=== PATIENT | female | born 1930 | race Caucasian/White ===

== ENCOUNTER 2016-11-21 14:09 | Outpatient (CLI) | payer MEDICARE, OTHER | END 2016-11-21 14:10 | disposition home or self-care (01) | DX: I48.91 Unspecified atrial fibrillation (principal); Z79.01 Long term (current) use of anticoagulants ==

== ENCOUNTER 2016-12-05 14:53 | Outpatient (CLI) | payer MEDICARE, OTHER | END 2016-12-05 14:54 | disposition home or self-care (01) | DX: I48.91 Unspecified atrial fibrillation (principal); Z79.01 Long term (current) use of anticoagulants ==

== ENCOUNTER 2017-01-02 14:17 | Outpatient (CLI) | payer MEDICARE, OTHER | END 2017-01-02 14:18 | disposition home or self-care (01) | DX: I48.91 Unspecified atrial fibrillation (principal); Z79.01 Long term (current) use of anticoagulants ==

== ENCOUNTER 2017-01-22 09:43 | Outpatient (CLI) | payer MEDICARE, OTHER | END 2017-01-22 09:44 | disposition home or self-care (01) | DX: E78.2 Mixed hyperlipidemia (principal); E03.9 Hypothyroidism, unspecified; Z79.899 Other long term (current) drug therapy ==

== ENCOUNTER 2017-01-30 09:32 | Outpatient (CLI) | payer MEDICARE, OTHER | END 2017-01-30 09:33 | disposition home or self-care (01) | DX: I48.91 Unspecified atrial fibrillation (principal); Z79.01 Long term (current) use of anticoagulants ==

== ENCOUNTER 2017-02-27 14:24 | Outpatient (CLI) | payer MEDICARE, OTHER | END 2017-02-27 14:25 | disposition home or self-care (01) | DX: I48.91 Unspecified atrial fibrillation (principal) ==

== ENCOUNTER 2017-04-03 14:17 | Outpatient (CLI) | payer MEDICARE, OTHER | END 2017-04-03 14:18 | LOC: LAB.F 14:17 | PROVIDERS: ATTEND Internal Medicine | DX: I48.91 Unspecified atrial fibrillation (principal) | CPT/HCPCS: 85610 ==

== ENCOUNTER 2017-05-01 14:48 | Outpatient (CLI) | payer MEDICARE, OTHER | END 2017-05-01 14:49 | disposition home or self-care (01) | LOC: LAB.F 14:48 | PROVIDERS: ATTEND Internal Medicine | DX: I48.91 Unspecified atrial fibrillation (principal) | CPT/HCPCS: 85610 ==

== ENCOUNTER 2017-05-31 11:13 | Outpatient (CLI) | payer MEDICARE, OTHER | END 2017-05-31 11:14 | disposition home or self-care (01) | LOC: LAB.F 11:13 | PROVIDERS: ATTEND Internal Medicine | DX: I48.91 Unspecified atrial fibrillation (principal) | CPT/HCPCS: 85610 ==

== ENCOUNTER 2017-06-14 15:46 | Outpatient (CLI) | payer MEDICARE, OTHER | END 2017-06-14 15:47 | disposition home or self-care (01) | LOC: LAB.F 15:46 | PROVIDERS: ATTEND Internal Medicine | DX: I48.91 Unspecified atrial fibrillation (principal); Z79.01 Long term (current) use of anticoagulants | CPT/HCPCS: 85610 ==

== ENCOUNTER 2017-06-28 14:45 | Outpatient (CLI) | payer MEDICARE, OTHER | END 2017-06-28 14:46 | disposition home or self-care (01) | LOC: LAB.F 14:45 | PROVIDERS: ATTEND Internal Medicine | DX: I48.91 Unspecified atrial fibrillation (principal) | CPT/HCPCS: 85610 ==

== ENCOUNTER 2017-07-31 15:55 | Outpatient (CLI) | payer MEDICARE, OTHER | END 2017-07-31 15:56 | disposition home or self-care (01) | LOC: LAB.F 15:55 | PROVIDERS: ATTEND Internal Medicine | DX: I48.91 Unspecified atrial fibrillation (principal); Z79.01 Long term (current) use of anticoagulants | CPT/HCPCS: 85610 ==

== ENCOUNTER 2017-08-28 14:54 | Outpatient (CLI) | payer MEDICARE, OTHER | END 2017-08-28 14:55 | disposition home or self-care (01) | LOC: LAB.F 14:54 | PROVIDERS: ATTEND Internal Medicine | DX: I48.91 Unspecified atrial fibrillation (principal); Z79.01 Long term (current) use of anticoagulants | CPT/HCPCS: 85610 ==

== ENCOUNTER 2017-10-16 15:07 | Outpatient (CLI) | payer MEDICARE, OTHER | END 2017-10-16 15:08 | disposition home or self-care (01) | LOC: LAB.F 15:07 | PROVIDERS: ATTEND Internal Medicine | DX: I48.91 Unspecified atrial fibrillation (principal); Z79.01 Long term (current) use of anticoagulants | CPT/HCPCS: 85610 ==

== ENCOUNTER 2017-11-13 14:26 | Outpatient (CLI) | payer MEDICARE, OTHER | END 2017-11-13 14:27 | disposition home or self-care (01) | LOC: LAB.F 14:26 | PROVIDERS: ATTEND Internal Medicine | DX: I48.91 Unspecified atrial fibrillation (principal); Z79.01 Long term (current) use of anticoagulants | CPT/HCPCS: 85610 ==

== ENCOUNTER 2017-11-28 14:53 | Outpatient (CLI) | payer MEDICARE, OTHER | END 2017-11-28 14:54 | disposition home or self-care (01) | LOC: LAB.F 14:53 | PROVIDERS: ATTEND Internal Medicine | DX: I48.91 Unspecified atrial fibrillation (principal); Z79.01 Long term (current) use of anticoagulants | CPT/HCPCS: 85610 ==

== ENCOUNTER 2017-12-15 06:12 | Emergency (ER) | payer MEDICARE, OTHER ==
[2017-12-15 06:33] VITALS: BP 190/82
--- NOTE | 2017-12-15 06:51 | ED Physician Documentation ---
History of Present Illness - Stated complaint Stated Complaint: NECK/RT SHOULDER PX - Chief complaint Chief Complaint: General - History obtained from History obtained from: Patient - History of Present Illness Timing: Yesterday - Additonal information Additional information: Patient is an 87 year old female with a history of afib and aortic regurgitation presenting to the emergency department for throbbing in her neck. Patient states that when she was getting ready for be last night she noticed pulsing in her neck and her veins looked larger. Patient states that she remembered a sign about possible strokes and was worried that she might be having a stroke even though she did not have any neurological symptoms. Patient complained of mild shortness of breath with exertion but states that has been going on for years. Patient states that she used to be on a diuretic but her doctor has taken her off it. Review of Systems Constitutional: denies: Fever, Chills Eyes: denies: Loss of vision, Photophobia Ears: reports: Reviewed and negative Nose: reports: Reviewed and negative Throat: reports: Reviewed and negative Cardiac: denies: Chest pain / pressure, Palpitations Respiratory: denies: Dyspnea, Cough, Wheezing GI: denies: Nausea, Vomiting Skin: denies: Rash, Lesions Musculoskeletal: denies: Neck pain, Back pain, Extremity pain Neurologic: denies: Generalized weakness, Focal weakness, Numbness, Difficulty speaking, Near syncope, Syncope, Headache, Head injury Immunocompromised: denies: Immunocompromised PD PAST MEDICAL HISTORY - Past Medical History Past Medical History: Yes Cardiovascular: Congestive heart failure Neuro: None Endocrine/Autoimmune: None HAND MIXER: None HEENT: None Derm: None - Allergies Allergies/Adverse Reactions: Allergies Allergy/AdvReac Type Severity Reaction Status Date / Time azithromycin [From Zithromax] AdvReac diarrhea Verified 12/15/17 06:39 Sulfa (Sulfonamide AdvReac diarrhea Verified 12/15/17 06:38 Antibiotics) - Social History Does the pt smoke?: No Smoking Status: Never smoker Does the pt drink ETOH?: No Does the pt have substance abuse?: No - Immunizations Immunizations are current?: Yes - POLST Patient has POLST: No PD ED PE NORMAL - Vitals Vital signs reviewed: Yes - General General: Alert and oriented X 3 - HEENT HEENT: Atraumatic, PERRL, Moist mucous membranes - Neck Neck: Supple, no meningeal sign, No bony TTP - Respiratory Respiratory: No respiratory distress - Abdomen Abdomen: Soft, Non tender, Non distended - Derm Derm: Normal color, Warm and dry, No rash - Extremities Extremities: No deformity, Normal ROM s pain - Neuro Neuro: Alert and oriented X 3, No motor deficit, No sensory deficit, Normal speech Eye Opening: Spontaneous Motor: Obeys Commands Verbal: Oriented GCS Score: 15 - Psych Psych: Normal mood PD ED PE EXPANDED - General General: Alert, Anxious - Neck Neck: JVD present (worse on right) - Cardiac Cardiac: Irregularly irregular, Murmur Present - Extremities Extremities: Right shoulder (minimal tenderness to palpation of right shoulder) Results - Vitals Vitals: Vital Signs - 24 hr 12/15/17 06:27 Temperature 36.4 C L Heart Rate 86 Respiratory 17 Rate Blood Pressure 190/82 H O2 Saturation 98 Oxygen O2 Source Room air PD MEDICAL DECISION MAKING - ED course Complexity details: reviewed old records, reviewed results, re-evaluated patient , considered differential, d/w patient ED course: Patient was seen and examined at bedside. Patient's neck vascularity was viewed under ultrasound. What patient had witnessed was her IJ resting on top of her carotid. Due to the jvd it was visible. Patient's previous echocardiogram results from 2016 were reviewed. Patient had regurgitation in multiple valves with sustained ejection fracture. Patient's symptoms were likely caused by a worsening of her disease. Patient stated that she felt comfortable following up with her doctor on sunday. Patient stated that her main concern was that she was having a stroke. Patient was stable for discharge with outpatient follow up. Departure - Departure Disposition: Home, Self Care Clinical Impression: JVD (jugular venous distension) Condition: Good Instructions: Regurgitation Aortic About Follow-Up: Salvador Harrington MD [Primary Care Provider] - Tomorrow Comments: Your symptoms today are secondary to the valves in your heart being leaky. It is important that you follow up with your doctor on sunday as you will need a repeat echocardiogram and will likely need to start taking a water pill. there were no signs of a stroke today. You should return to the emergency department for chest pain, new shortness of breath, change in vision, new worsening or uncontrollable symptoms.
== END 2017-12-15 07:20 | disposition home or self-care (01) ==
LOC: ED 06:12
DX: I87.8 Other specified disorders of veins (principal); I48.91 Unspecified atrial fibrillation; I50.9 Heart failure, unspecified; I35.1 Nonrheumatic aortic (valve) insufficiency
CPT/HCPCS: 99282; 99284

== ENCOUNTER 2017-12-20 11:19 | Outpatient (CLI) | payer MEDICARE, OTHER | END 2017-12-20 11:20 | disposition home or self-care (01) | LOC: DI 11:19 | PROVIDERS: ATTEND Internal Medicine | DX: I08.1 Rheumatic disorders of both mitral and tricuspid valves (principal); I87.8 Other specified disorders of veins | CPT/HCPCS: 93306 ==

== ENCOUNTER 2017-12-27 08:00 | Outpatient (CLI) | payer MEDICARE, OTHER | END 2017-12-27 08:01 | disposition home or self-care (01) | LOC: LAB.F 08:00 | PROVIDERS: ATTEND Internal Medicine | DX: I48.91 Unspecified atrial fibrillation (principal); Z79.01 Long term (current) use of anticoagulants | CPT/HCPCS: 85610 ==

== ENCOUNTER 2018-01-08 13:45 | Outpatient (CLI) | payer MEDICARE, OTHER ==
[2018-01-08 18:09] LABS: CALCIUM 8.9 mg/dL (8.5-10.3); CREATININE 0.9 mg/dL (0.4-1.0)
== END 2018-01-08 13:46 | disposition home or self-care (01) ==
LOC: LAB.F 13:45
PROVIDERS: ATTEND Internal Medicine Cardiovascular Disease
DX: I48.91 Unspecified atrial fibrillation (principal); Z79.01 Long term (current) use of anticoagulants; I35.1 Nonrheumatic aortic (valve) insufficiency; I34.0 Nonrheumatic mitral (valve) insufficiency
CPT/HCPCS: 36415; 80048

== ENCOUNTER 2018-01-24 11:25 | Outpatient (CLI) | payer MEDICARE, OTHER | END 2018-01-24 11:26 | disposition home or self-care (01) | LOC: LAB.F 11:25 | PROVIDERS: ATTEND Internal Medicine | DX: I48.91 Unspecified atrial fibrillation (principal); Z79.01 Long term (current) use of anticoagulants | CPT/HCPCS: 85610 ==

== ENCOUNTER 2018-02-13 10:19 | Outpatient (CLI) | payer MEDICARE, OTHER ==
[2018-02-13 17:55] LABS: BASOPHILS # (AUTO) 0.1 10^3/uL (0.0-0.1); BASOPHILS % (AUTO) 1.2 %; EOSINOPHILS # (AUTO) 0.1 10^3/uL (0.0-0.7); EOSINOPHILS % (AUTO) 2.1 %; HGB - HEMOGLOBIN 13.5 g/dL (12.0-16.0); LYMPHOCYTES # (AUTO) 1.2 10^3/uL (1.5-3.5); LYMPHOCYTES % (AUTO) 23.2 %; MEAN CORPUSCULAR HEMOGLOBIN 31.1 pg (27.0-31.0); MEAN CORPUSCULAR VOLUME 94.2 fL (81.0-99.0); MEAN PLATELET VOLUME 8.2 fL (7.9-10.8); MONOCYTES # (AUTO) 0.5 10^3/uL (0.0-1.0); MONOCYTES % (AUTO) 9.5 %; NEUTROPHILS # (AUTO) 3.3 10^3/uL (1.5-6.6); PLT - PLATELET COUNT 158 10^3/uL (130-450); RED BLOOD COUNT 4.34 10^6/uL (4.20-5.40); RED CELL DISTRIBUTION WIDTH 14.8 % (12.0-15.0); WHITE BLOOD COUNT 5.2 x10^3/uL (4.8-10.8)
[2018-02-13 18:07] LABS: ALBUMIN 4.3 g/dL (3.2-5.5); ALBUMIN/GLOBULIN RATIO 1.6 (1.0-2.2); ALKALINE PHOSPHATASE 56 IU/L (42-121); ALT ALANINE AMINOTRANSFERASE 24 IU/L (10-60); AST ASPARTATE AMINOTRANSFERASE 27 IU/L (10-42); BUN - BLOOD UREA NITROGEN 32 mg/dL (6-20); CALCIUM 9.4 mg/dL (8.5-10.3); CARBON DIOXIDE - CO2 31 mmol/L (21-32); CHLORIDE 98 mmol/L (101-111); CHOL/HDL RATIO 2.6 (<4.4); CHOLESTEROL 129 mg/dL; GFR - MDRD 52 (>89); GLUCOSE 91 mg/dL (70-100); HDL CHOLESTEROL 49 mg/dL; LDL CHOLESTEROL,CALCULATED 72 mg/dL; LDL/HDL RATIO 1.5 (<4.4); SODIUM 137 mmol/L (135-145); VLDL CHOLESTEROL 8 mg/dL
== END 2018-02-13 10:20 | disposition home or self-care (01) ==
LOC: LAB.F 10:19
PROVIDERS: ATTEND Internal Medicine
DX: M85.80 Other specified disorders of bone density and structure, unspecified site (principal); E03.9 Hypothyroidism, unspecified; I48.91 Unspecified atrial fibrillation; I10 Essential (primary) hypertension; E78.5 Hyperlipidemia, unspecified
CPT/HCPCS: 36415; 80053; 80061; 83721; 84443; 85025

== ENCOUNTER 2018-02-27 10:44 | Outpatient (CLI) | payer MEDICARE, OTHER | END 2018-02-27 10:45 | disposition home or self-care (01) | LOC: LAB.F 10:44 | PROVIDERS: ATTEND Internal Medicine | DX: I48.91 Unspecified atrial fibrillation (principal); Z79.01 Long term (current) use of anticoagulants | CPT/HCPCS: 85610 ==

== ENCOUNTER 2018-03-25 14:50 | Outpatient (CLI) | payer MEDICARE, OTHER ==
[2018-03-25 18:26] LABS: CALCIUM 9.4 mg/dL (8.5-10.3); CREATININE 1.1 mg/dL (0.4-1.0)
== END 2018-03-25 14:51 | disposition home or self-care (01) ==
LOC: LAB.F 14:50
PROVIDERS: ATTEND Internal Medicine Cardiovascular Disease
DX: R94.4 Abnormal results of kidney function studies (principal)
CPT/HCPCS: 36415; 80048

== ENCOUNTER 2018-03-28 15:02 | Outpatient (CLI) | payer MEDICARE, OTHER | END 2018-03-28 15:03 | disposition home or self-care (01) | LOC: LAB.F 15:02 | PROVIDERS: ATTEND Internal Medicine | DX: I48.91 Unspecified atrial fibrillation (principal); Z79.01 Long term (current) use of anticoagulants | CPT/HCPCS: 85610 ==

== ENCOUNTER 2018-04-25 15:23 | Outpatient (CLI) | payer MEDICARE, OTHER | END 2018-04-25 15:24 | disposition home or self-care (01) | LOC: LAB.F 15:23 | PROVIDERS: ATTEND Internal Medicine | DX: I48.91 Unspecified atrial fibrillation (principal); Z79.01 Long term (current) use of anticoagulants | CPT/HCPCS: 85610 ==

== ENCOUNTER 2018-04-29 11:50 | Outpatient (CLI) | payer MEDICARE, OTHER ==
[2018-04-29 14:05] LABS: BASOPHILS % (AUTO) 0.9 %; EOSINOPHILS % (AUTO) 0.8 %; HGB - HEMOGLOBIN 12.8 g/dL (12.0-16.0); LYMPHOCYTES # (AUTO) 0.9 10^3/uL (1.5-3.5); LYMPHOCYTES % (AUTO) 22.8 %; MEAN CORPUSCULAR HEMOGLOBIN 32.6 pg (27.0-31.0); MEAN CORPUSCULAR HGB CONC 34.2 g/dL (32.0-36.0); MEAN CORPUSCULAR VOLUME 95.3 fL (81.0-99.0); MEAN PLATELET VOLUME 8.6 fL (7.9-10.8); MONOCYTES # (AUTO) 0.5 10^3/uL (0.0-1.0); MONOCYTES % (AUTO) 12.8 %; NEUTROPHILS # (AUTO) 2.5 10^3/uL (1.5-6.6); NEUTROPHILS % (AUTO) 62.7 %; PLT - PLATELET COUNT 96 10^3/uL (130-450); RED BLOOD COUNT 3.92 10^6/uL (4.20-5.40); RED CELL DISTRIBUTION WIDTH 14.9 % (12.0-15.0); WHITE BLOOD COUNT 3.9 x10^3/uL (4.8-10.8)
[2018-04-29 14:09] LABS: ALBUMIN 3.5 g/dL (3.2-5.5); ALBUMIN/GLOBULIN RATIO 1.2 (1.0-2.2); BILIRUBIN,TOTAL 0.8 mg/dL (0.2-1.0); CALCIUM 8.5 mg/dL (8.5-10.3); CREATININE 0.9 mg/dL (0.4-1.0); TOTAL PROTEIN 6.4 g/dL (6.7-8.2)
[2018-04-29 14:26] LABS: RBC MORPHOLOGY (MULTIPLE) 2+ ANISOCYTOSIS (NORMAL)
== END 2018-04-29 11:51 | disposition home or self-care (01) ==
LOC: LAB.R 11:50
PROVIDERS: ATTEND Internal Medicine
DX: R19.7 Diarrhea, unspecified (principal)
CPT/HCPCS: 80053; 85025

== ENCOUNTER 2018-05-09 14:00 | Outpatient (CLI) | payer MEDICARE, OTHER | END 2018-05-09 14:01 | disposition home or self-care (01) | LOC: LAB.F 14:00 | PROVIDERS: ATTEND Internal Medicine | DX: I48.91 Unspecified atrial fibrillation (principal); Z79.01 Long term (current) use of anticoagulants | CPT/HCPCS: 85610 ==

== ENCOUNTER 2018-05-23 15:30 | Outpatient (CLI) | payer MEDICARE, OTHER | END 2018-05-23 15:31 | disposition home or self-care (01) | LOC: LAB.F 15:30 | PROVIDERS: ATTEND Internal Medicine | DX: I48.91 Unspecified atrial fibrillation (principal); Z79.01 Long term (current) use of anticoagulants | CPT/HCPCS: 85610 ==

== ENCOUNTER 2018-06-06 15:15 | Outpatient (CLI) | payer MEDICARE, OTHER | END 2018-06-06 15:16 | disposition home or self-care (01) | LOC: LAB.F 15:15 | PROVIDERS: ATTEND Internal Medicine | DX: I48.91 Unspecified atrial fibrillation (principal); Z79.01 Long term (current) use of anticoagulants | CPT/HCPCS: 85610 ==

== ENCOUNTER 2018-06-20 10:04 | Outpatient (CLI) | payer MEDICARE, OTHER | END 2018-06-20 10:05 | disposition home or self-care (01) | LOC: LAB.F 10:04 | PROVIDERS: ATTEND Internal Medicine | DX: I48.91 Unspecified atrial fibrillation (principal); Z79.01 Long term (current) use of anticoagulants | CPT/HCPCS: 85610 ==

== ENCOUNTER 2018-07-09 10:08 | Outpatient (CLI) | payer MEDICARE, OTHER ==
[2018-07-09 19:14] LABS: CALCIUM 9.4 mg/dL (8.5-10.3)
== END 2018-07-09 10:09 | disposition home or self-care (01) ==
LOC: LAB.F 10:08
PROVIDERS: ATTEND Internal Medicine
DX: I10 Essential (primary) hypertension (principal)
CPT/HCPCS: 36415; 80048

== ENCOUNTER 2018-07-18 11:04 | Outpatient (CLI) | payer MEDICARE, OTHER | END 2018-07-18 11:05 | disposition home or self-care (01) | LOC: LAB.F 11:04 | PROVIDERS: ATTEND Internal Medicine | DX: I48.91 Unspecified atrial fibrillation (principal); Z79.01 Long term (current) use of anticoagulants | CPT/HCPCS: 85610 ==

== ENCOUNTER 2018-08-01 13:24 | Outpatient (CLI) | payer MEDICARE, OTHER | END 2018-08-01 13:25 | disposition home or self-care (01) | LOC: LAB.F 13:24 | PROVIDERS: ATTEND Internal Medicine | DX: I48.91 Unspecified atrial fibrillation (principal); Z79.01 Long term (current) use of anticoagulants | CPT/HCPCS: 85610 ==

== ENCOUNTER 2018-08-28 14:59 | Outpatient (CLI) | payer MEDICARE, OTHER | END 2018-08-28 15:00 | disposition home or self-care (01) | LOC: LAB.F 14:59 | PROVIDERS: ATTEND Internal Medicine | DX: I48.91 Unspecified atrial fibrillation (principal); Z79.01 Long term (current) use of anticoagulants | CPT/HCPCS: 85610 ==

== ENCOUNTER 2018-09-05 13:43 | Outpatient (CLI) | payer MEDICARE, OTHER | END 2018-09-05 13:44 | disposition home or self-care (01) | LOC: LAB.F 13:43 | PROVIDERS: ATTEND Internal Medicine | DX: I48.91 Unspecified atrial fibrillation (principal); Z79.01 Long term (current) use of anticoagulants | CPT/HCPCS: 85610 ==

== ENCOUNTER 2018-10-01 10:35 | Outpatient (CLI) | payer MEDICARE, OTHER | END 2018-10-01 10:36 | disposition home or self-care (01) | LOC: LAB.F 10:35 | PROVIDERS: ATTEND Internal Medicine | DX: I48.91 Unspecified atrial fibrillation (principal); Z79.01 Long term (current) use of anticoagulants | CPT/HCPCS: 85610 ==

== ENCOUNTER 2018-10-29 14:32 | Outpatient (CLI) | payer MEDICARE, OTHER | END 2018-10-29 14:33 | disposition home or self-care (01) | LOC: LAB.F 14:32 | PROVIDERS: ATTEND Internal Medicine | DX: I48.91 Unspecified atrial fibrillation (principal); Z79.01 Long term (current) use of anticoagulants | CPT/HCPCS: 85610 ==

== ENCOUNTER 2018-11-13 14:44 | Outpatient (CLI) | payer MEDICARE, OTHER | END 2018-11-13 14:45 | disposition home or self-care (01) | LOC: LAB.F 14:44 | PROVIDERS: ATTEND Internal Medicine | DX: I48.91 Unspecified atrial fibrillation (principal); Z79.01 Long term (current) use of anticoagulants | CPT/HCPCS: 85610 ==

== ENCOUNTER 2018-11-28 15:11 | Outpatient (CLI) | payer MEDICARE, OTHER | END 2018-11-28 15:12 | disposition home or self-care (01) | LOC: LAB.F 15:11 | PROVIDERS: ATTEND Internal Medicine | DX: I48.91 Unspecified atrial fibrillation (principal); Z79.01 Long term (current) use of anticoagulants | CPT/HCPCS: 85610 ==

== ENCOUNTER 2018-12-25 14:22 | Outpatient (CLI) | payer MEDICARE, OTHER | END 2018-12-25 14:23 | disposition home or self-care (01) | LOC: LAB.F 14:22 | PROVIDERS: ATTEND Internal Medicine | DX: I48.91 Unspecified atrial fibrillation (principal); Z79.01 Long term (current) use of anticoagulants | CPT/HCPCS: 85610 ==

== ENCOUNTER 2019-02-04 14:15 | Outpatient (CLI) | payer MEDICARE, OTHER | END 2019-02-04 14:16 | disposition home or self-care (01) | LOC: LAB.F 14:15 | PROVIDERS: ATTEND Internal Medicine | DX: I48.91 Unspecified atrial fibrillation (principal); Z79.01 Long term (current) use of anticoagulants | CPT/HCPCS: 85610 ==

== ENCOUNTER 2019-02-12 10:21 | Outpatient (CLI) | payer MEDICARE, OTHER ==
[2019-02-12 18:25] LABS: ALBUMIN/GLOBULIN RATIO 1.4 (1.0-2.2); ALKALINE PHOSPHATASE 49 IU/L (42-121); ALT ALANINE AMINOTRANSFERASE 20 IU/L (10-60); AST ASPARTATE AMINOTRANSFERASE 23 IU/L (10-42); BILIRUBIN,TOTAL 1.1 mg/dL (0.2-1.0); BUN - BLOOD UREA NITROGEN 31 mg/dL (6-20); CALCIUM 9.2 mg/dL (8.5-10.3); CARBON DIOXIDE - CO2 29 mmol/L (21-32); CHLORIDE 100 mmol/L (101-111); CHOL/HDL RATIO 2.5 (<4.4); CHOLESTEROL 133 mg/dL; GFR - MDRD 52 (>89); GLUCOSE 91 mg/dL (70-100); HDL CHOLESTEROL 53 mg/dL; LDL CHOLESTEROL,CALCULATED 71 mg/dL; LDL/HDL RATIO 1.3 (<4.4); SODIUM 139 mmol/L (135-145); TOTAL PROTEIN 6.8 g/dL (6.7-8.2); VLDL CHOLESTEROL 9 mg/dL
[2019-02-12 19:56] LABS: HGB - HEMOGLOBIN 13.4 g/dL (12.0-16.0); MEAN CORPUSCULAR HEMOGLOBIN 32.1 pg (27.0-31.0); MEAN CORPUSCULAR HGB CONC 33.1 g/dL (32.0-36.0); MEAN CORPUSCULAR VOLUME 97.2 fL (81.0-99.0); MEAN PLATELET VOLUME 8.3 fL (7.9-10.8); RED BLOOD COUNT 4.17 10^6/uL (4.20-5.40); WHITE BLOOD COUNT 4.4 x10^3/uL (4.8-10.8)
== END 2019-02-12 10:22 | disposition home or self-care (01) ==
LOC: LAB.F 10:21
PROVIDERS: ATTEND Internal Medicine
DX: E78.5 Hyperlipidemia, unspecified (principal); E03.9 Hypothyroidism, unspecified; Z79.01 Long term (current) use of anticoagulants
CPT/HCPCS: 36415; 80053; 80061; 83721; 84443; 85027

== ENCOUNTER 2019-03-12 14:45 | Outpatient (CLI) | payer MEDICARE, OTHER | END 2019-03-12 14:46 | disposition home or self-care (01) | LOC: LAB.F 14:45 | PROVIDERS: ATTEND Internal Medicine | DX: I48.91 Unspecified atrial fibrillation (principal); Z79.01 Long term (current) use of anticoagulants | CPT/HCPCS: 85610 ==

== ENCOUNTER 2019-03-20 09:49 | Outpatient (CLI) | payer MEDICARE, OTHER | END 2019-03-20 09:50 | disposition home or self-care (01) | LOC: LAB.F 09:49 | PROVIDERS: ATTEND Internal Medicine | DX: Z79.01 Long term (current) use of anticoagulants (principal); I48.91 Unspecified atrial fibrillation | CPT/HCPCS: 85610 ==

== ENCOUNTER 2019-03-27 10:31 | Outpatient (CLI) | payer MEDICARE, OTHER | END 2019-03-27 10:32 | disposition home or self-care (01) | LOC: LAB.F 10:31 | PROVIDERS: ATTEND Internal Medicine | DX: I48.91 Unspecified atrial fibrillation (principal); Z79.01 Long term (current) use of anticoagulants | CPT/HCPCS: 85610 ==

== ENCOUNTER 2019-04-10 08:00 | Outpatient (CLI) | payer MEDICARE, OTHER | END 2019-04-10 23:59 | disposition home or self-care (01) | LOC: LAB 08:00 | PROVIDERS: ATTEND Internal Medicine | DX: I48.91 Unspecified atrial fibrillation (principal); Z79.01 Long term (current) use of anticoagulants | CPT/HCPCS: 85610 ==

== ENCOUNTER 2019-04-17 10:24 | Outpatient (CLI) | payer MEDICARE, OTHER | END 2019-04-17 10:25 | disposition home or self-care (01) | LOC: LAB.F 10:24 | PROVIDERS: ATTEND Internal Medicine | DX: Z79.01 Long term (current) use of anticoagulants (principal); I48.91 Unspecified atrial fibrillation | CPT/HCPCS: 85610 ==

== ENCOUNTER 2019-04-24 10:40 | Outpatient (CLI) | payer MEDICARE, OTHER | END 2019-04-24 10:41 | disposition home or self-care (01) | LOC: LAB.F 10:40 | PROVIDERS: ATTEND Internal Medicine | DX: I48.91 Unspecified atrial fibrillation (principal); Z79.01 Long term (current) use of anticoagulants | CPT/HCPCS: 85610 ==

== ENCOUNTER 2019-05-08 13:32 | Outpatient (CLI) | payer MEDICARE, OTHER | END 2019-05-08 13:33 | disposition home or self-care (01) | LOC: LAB.F 13:32 | PROVIDERS: ATTEND Internal Medicine | DX: Z79.01 Long term (current) use of anticoagulants (principal); I48.91 Unspecified atrial fibrillation | CPT/HCPCS: 85610 ==

== ENCOUNTER 2019-05-14 11:17 | Outpatient (CLI) | payer MEDICARE, OTHER | END 2019-05-14 11:18 | disposition home or self-care (01) | LOC: LAB 11:17 | PROVIDERS: ATTEND Internal Medicine | DX: I48.91 Unspecified atrial fibrillation (principal); Z79.01 Long term (current) use of anticoagulants | CPT/HCPCS: 85610 ==

== ENCOUNTER 2019-05-28 16:34 | Outpatient (CLI) | payer MEDICARE, OTHER | END 2019-05-28 16:35 | disposition home or self-care (01) | LOC: LAB.S 16:34 → LAB 16:35 | PROVIDERS: ATTEND Internal Medicine | DX: I48.91 Unspecified atrial fibrillation (principal); Z79.01 Long term (current) use of anticoagulants | CPT/HCPCS: 85610 ==

== ENCOUNTER 2019-06-04 15:43 | Outpatient (CLI) | payer MEDICARE, OTHER | END 2019-06-04 15:44 | disposition home or self-care (01) | LOC: LAB 15:43 | PROVIDERS: ATTEND Internal Medicine | DX: Z79.01 Long term (current) use of anticoagulants (principal); I48.91 Unspecified atrial fibrillation | CPT/HCPCS: 85610 ==

== ENCOUNTER 2019-06-11 11:39 | Outpatient (CLI) | payer MEDICARE, OTHER | END 2019-06-11 11:40 | disposition home or self-care (01) | LOC: LAB 11:39 | PROVIDERS: ATTEND Family Medicine | DX: I48.91 Unspecified atrial fibrillation (principal) | CPT/HCPCS: 85610 ==

== ENCOUNTER 2019-06-18 10:39 | Outpatient (CLI) | payer MEDICARE, OTHER | END 2019-06-18 10:40 | disposition home or self-care (01) | LOC: LAB 10:39 | PROVIDERS: ATTEND Family Medicine | DX: I48.91 Unspecified atrial fibrillation (principal) | CPT/HCPCS: 85610 ==

== ENCOUNTER 2019-06-25 15:08 | Outpatient (CLI) | payer MEDICARE, OTHER | END 2019-06-25 15:09 | disposition home or self-care (01) | LOC: LAB 15:08 | PROVIDERS: ATTEND Family Medicine | DX: I48.91 Unspecified atrial fibrillation (principal) | CPT/HCPCS: 36415; 85610 ==

== ENCOUNTER 2019-07-02 15:21 | Outpatient (CLI) | payer MEDICARE, OTHER | END 2019-07-02 15:22 | disposition home or self-care (01) | LOC: LAB 15:21 | PROVIDERS: ATTEND Family Medicine | DX: I48.91 Unspecified atrial fibrillation (principal) | CPT/HCPCS: 85610 ==

== ENCOUNTER 2019-07-16 13:30 | Outpatient (CLI) | payer MEDICARE, OTHER | END 2019-07-16 13:31 | disposition home or self-care (01) | LOC: LAB 13:30 | PROVIDERS: ATTEND Family Medicine | DX: I48.91 Unspecified atrial fibrillation (principal) | CPT/HCPCS: 85610 ==

== ENCOUNTER 2019-07-28 10:58 | Outpatient (CLI) | payer MEDICARE, OTHER ==
[2019-07-28 11:27] LABS: BASOPHILS % (AUTO) 0.7 %; EOSINOPHILS # (AUTO) 0.1 10^3/uL (0.0-0.7); EOSINOPHILS % (AUTO) 2.4 %; HGB - HEMOGLOBIN 13.3 g/dL (12.0-16.0); LYMPHOCYTES # (AUTO) 1.4 10^3/uL (1.5-3.5); MEAN CORPUSCULAR HEMOGLOBIN 32.4 pg (27.0-31.0); MEAN CORPUSCULAR HGB CONC 33.2 g/dL (32.0-36.0); MEAN CORPUSCULAR VOLUME 97.8 fL (81.0-99.0); MEAN PLATELET VOLUME 9.2 fL (7.9-10.8); MONOCYTES # (AUTO) 0.7 10^3/uL (0.0-1.0); MONOCYTES % (AUTO) 12.2 %; NEUTROPHILS # (AUTO) 3.2 10^3/uL (1.5-6.6); NEUTROPHILS % (AUTO) 59.3 %; PLT - PLATELET COUNT 154 10^3/uL (130-450); RED CELL DISTRIBUTION WIDTH 14.4 % (12.0-15.0); WHITE BLOOD COUNT 5.4 x10^3/uL (4.8-10.8)
[2019-07-28 12:09] LABS: ALBUMIN 4.3 g/dL (3.2-5.5); ALBUMIN/GLOBULIN RATIO 1.4 (1.0-2.2); CALCIUM 9.6 mg/dL (8.5-10.3); CREATININE 1.1 mg/dL (0.4-1.0); TOTAL PROTEIN 7.3 g/dL (6.7-8.2)
[2019-07-28 13:29] LABS: THYROID STIMULATING HORMONE 4.26 uIU/mL (0.34-5.60)
[2019-07-28 13:30] LABS: FREE T4 (FREE THYROXINE) 1.24 ng/dL (0.58-1.64)
== END 2019-07-28 10:59 | disposition home or self-care (01) ==
LOC: LAB 10:58
PROVIDERS: ATTEND Family Medicine
DX: I34.0 Nonrheumatic mitral (valve) insufficiency (principal); I48.91 Unspecified atrial fibrillation; E03.9 Hypothyroidism, unspecified; I10 Essential (primary) hypertension
CPT/HCPCS: 36415; 80053; 84439; 84443; 84481; 85025